=== PATIENT | female | born 2000 | race Caucasian/White ===

== ENCOUNTER 2022-12-07 12:24 | Emergency (ER) | payer BC, SELFPAY ==
[2022-12-07 12:35] VITALS: BP 114/60; PULSE 103; RESP 20; TEMP 36.3; O2SAT 98
--- NOTE | 2022-12-07 13:13 | ED.GENADULT ---
HPI - General Adult General Chief complaint: Upper Respiratory Infection Stated complaint: sore throat Source: patient Mode of arrival: ambulatory Limitations: no limitations History of Present Illness HPI narrative: Patient presents for evaluation of sore throat and left-sided ear pain for the last 3 days. No fever, chills, nausea, vomiting, cough, shortness of breath. Her brother is evaluated here for sick symptoms. Several of his coworkers recently tested positive for COVID. She is currently , 32 weeks gestation. Denies any vaginal bleeding or discharge. She is not taking any medication for her symptoms as she was unsure what she could take while . Related Data Home Medications Medication Instructions Recorded Confirmed aspirin 81 mg tablet,delayed 81 mg PO DAILY 12/07/22 12/07/22 release Allergies Allergy/AdvReac Type Severity Reaction Status Date / Time No Known Allergies Allergy Verified 12/07/22 12:48 Review of Systems Review of Systems: CONSTITUTIONAL: Denies fever, chills, or sweats. EYES: Denies visual changes, redness, or discharge. ENT: Reports sore throat and left sided ear pain CARDIOVASCULAR: Denies chest pain, palpitations, or edema. RESPIRATORY: Denies cough or dyspnea. GASTROINTESTINAL: Denies abdominal pain, nausea, vomiting, or diarrhea. GENITOURINARY: Denies dysuria or hematuria. SKIN: Denies rash or itching. MUSCULOSKELETAL: Denies back pain, joint pain, or myalgia. NEUROLOGIC: Denies headache, numbness, dizziness, or weakness. PSYCHIATRIC: Denies anxiety or depression. [facility] Past Medical History Medical History No pertinent past medical history Surgical History Surgical History No pertinent past surgical history Family History Family History Mother Family history non-contributory Social History Social History (Updated 12/07/22 @ 13:16 by HITESH Newell, ) Substance use: never Living arrangements: with family Gender identity (if verbalized by the patient): Female Sexual Orientation (if Verbalized by the Patient): Straight or Heterosexual Spiritual care concerns: No Exam Narrative: GENERAL: Well-appearing, well-nourished, and in no acute distress. HEAD: Normocephalic, atraumatic. EYES: PERRLA and EOMI. ENT: Nares clear, no rhinorrhea or epistaxis. Mucous membranes moist. Oropharynx without tonsillar hypertrophy exudate or other lesions. Bilateral TMs pearly carrera nonbulging NECK: Supple. No adenopathy or masses. No carotid bruits or JVD CHEST: Clear to auscultation. No respiratory distress. No wheezes rales or rhonchi HEART: Regular rate and rhythm. No murmur heard. Normal peripheral pulses. ABDOMEN: Soft, nontender, nondistended, normal active bowel sounds. EXTREMITIES: Normal range of motion. No edema. SKIN: Warm, dry, no rash. NEURO: No focal deficits. Alert and oriented x3. PSYCH: Normal mood and affect. Course Course Emergency Course: This is a 22-year-old female who presented for evaluation of sore throat and left-sided ear pain. Strep and COVID were negative. Exam is consistent with acute viral syndrome. Patient appears well clinically. Tylenol for pain. Increase hydration. Follow up with OBGYN. Go to the emergency department for worsening symptoms. Patient in agreement with plan of care. Level of Care: Express Care Visit Vital Signs Vital signs: Vital Signs Temperature 36.3 C L 12/07/22 12:35 Pulse Rate 103 H 12/07/22 12:35 Respiratory Rate 12/07/22 12:35 Blood Pressure 114/60 12/07/22 12:35 Pulse Oximetry 98 12/07/22 12:35 Oxygen Delivery Room Air 12/07/22 12:35 Temperature 36.3 C L 12/07/22 12:35 Pulse Rate 103 H 12/07/22 12:35 Respiratory Rate 12/07/22 12:35 Blood Pressure 114/6
== END 2022-12-07 13:49 | disposition home or self-care (01) ==
PROVIDERS: Emergency Provider Nurse Practitioner
DX: J02.9 Acute pharyngitis, unspecified (principal); Z79.82 Long term (current) use of aspirin
CPT/HCPCS: 87081; 87880; 99213; G0463